=== PATIENT | male | born 2000 | race African-American/Black ===

== ENCOUNTER 2021-05-05 23:05 | Emergency (ER) | payer BC, OTHER ==
[~2021-05-05] VITALS: Ht 188 cm; Wt 70.3 kg
--- NOTE | 2021-05-05 23:25 | NUR ---
BIBSELF C/O SOB AND PRODUCTIVE COUGH X2 DAYS. REPORTS HAVING A NEGATIVE COVID TEST YEATERDAY -COVID VACCINATED. REPORTS PAIN W INSPIRATION /10 MIDSTERNAL. -FEVER -N/V. RESPIRATIONS EVEN AND UNLABORED 99% RA. LAUGHLIN AT BEDSIDE FOR EVAL.
[2021-05-05] MEDS ORDERED: GUAIFENESIN LA 600 MG TABLET.SA PO ONE ×2 (23:30→23:36)
[2021-05-05] MEDS ORDERED: GUAIFENESIN/D-METHORPHAN HB 5 ML UDC ONE (23:36)
--- NOTE | 2021-05-05 23:56 | NUR ---
COVID SPECIMEN COLLECTED AND SENT TO LAB
[2021-05-06] MEDS ORDERED: GUAIFENESIN/D-METHORPHAN HB 5 ML UDC PO ONE
[2021-05-06] MEDS ORDERED: GUAI1TBM19 PO (00:48)
[2021-05-06] MEDS ORDERED: BENZ-13 PO (00:48)
[2021-05-06 01:28] VITALS: BP 126/74
--- NOTE | 2021-05-06 01:28 | NUR ---
Patient discharged to home in stable condition. Written and verbal after care instructions given. Patient verbalizes understanding of instruction.
== END 2021-05-06 01:29 | disposition home or self-care (01) ==
LOC: ER 23:07
DX: J06.9 Acute upper respiratory infection, unspecified (principal); Z20.822 Contact with and (suspected) exposure to COVID-19; R00.0 Tachycardia, unspecified
CPT/HCPCS: 71045; 87426; 93005; 99285; C9803